=== PATIENT | male | born 1995 | race Caucasian/White ===

== ENCOUNTER → 2016-06-20 | Outpatient (CLI) | payer SELFPAY ==
--- NOTE | 2016-06-20 10:36 | RAD ---
EXAM DESCRIPTION: XR HAND 3 OR MORE VIEWS CLINICAL HISTORY: 20 y/o ,M, HAND PN COMPARISON: None. IMPRESSION: Nondisplaced fractures of the base of the 4th and 5th metacarpals. Associated soft tissue swelling. No additional fractures noted. No osseous lesion. No degenerative change. No radiopaque foreign body. Electronically signed by: Marito Mcdonald MD 06/20/2016 10:34
== END | disposition home or self-care (01) ==
LOC: RAD 08:29
PROVIDERS: ATTEND Orthopaedic Surgery
DX: M79.641 Pain in right hand (principal)

== ENCOUNTER → 2016-06-26 | Outpatient (CLI) | payer OTHER, SELFPAY ==
--- NOTE | 2016-06-26 10:51 | CT ---
EXAM DESCRIPTION: CT UPPER EXTREMITY WITHOUT IV CONTRAST CLINICAL HISTORY: 20 y/o M, FX COMPARISON: None TECHNIQUE: Volumetric non contrasted imaging of the wrist. Data was reformatted for interpretation. FINDINGS: There is a depression fracture of the distal aspect of the hamate due to impaction from the base of the 5th metacarpal. The hamate fracture is best visualized on the sagittal images. Bone island also noted within the hamate period There is an avulsion injury off of the ulnar aspect of the proximal aspect of the 4th metacarpal metaphysis. The remaining metacarpals are unremarkable. The remaining carpal bones are unremarkable. Radiocarpal joint is unremarkable. No ligamentous injury of the scapholunate or lunotriquetral ligament. IMPRESSION: Today's exam demonstrates a sagittally oriented avulsion injury off of the proximal metaphysis of 4th metacarpal. There is a coronally oriented fracture of the distal hamate as it articulates with the 5th metacarpal due to impaction from the base of 5th metacarpal. No additional fractures noted. Electronically signed by: Marito Mcdonald MD 06/26/2016 10:50
== END | disposition home or self-care (01) ==
LOC: CT 09:14
PROVIDERS: ATTEND Orthopaedic Surgery
DX: S62.306A Unspecified fracture of fifth metacarpal bone, right hand, initial encounter for closed fracture (principal)

== ENCOUNTER → 2016-07-29 | Outpatient (CLI) | payer OTHER ==
--- NOTE | 2016-07-29 09:19 | RAD ---
EXAM DESCRIPTION: Hand,Right 3 Views CLINICAL HISTORY: 20 years Male, CLOSED FX OF METACARPAL BONE IMPRESSION: Today's exam is compared to June 20, 2016. The base of the fourth metacarpal fracture is difficult to visualize, but is likely demonstrated some healing proximally. On the oblique radiograph there is a fracture fragment noted which appears stable today's exam and is likely an unhealed avulsion injury of the base of the fifth metacarpal. The soft tissue swelling has decreased. No additional findings on today's study. Electronically signed by: Marito Mcdonald MD 07/29/2016 9:18 AM CDT
== END ==
LOC: RAD 08:05
PROVIDERS: ATTEND Orthopaedic Surgery
DX: S62.300D Unspecified fracture of second metacarpal bone, right hand, subsequent encounter for fracture with routine healing (principal)

== ENCOUNTER 2017-11-23 19:57 | Inpatient (IN) | payer OTHER ==
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
--- NOTE | 2017-11-23 20:53 | RAD ---
EXAM: Facial Bones CLINICAL INDICATION: Left-sided facial pain COMPARISON: There is no previous study for comparison. FINDINGS: 3 views of the facial bones reveal no evidence of any fracture. The osseous structures appear intact and unremarkable. There are no radiopaque foreign bodies. IMPRESSION: Normal facial bone radiographs. Electronically signed by: Raphael Dixon MD 11/23/2017 8:52 PM CDT
--- NOTE | 2017-11-23 20:54 | RAD ---
EXAM: Chest,1 View CLINICAL INDICATION: Fever COMPARISON: 09/17/2013 FINDINGS: A single view of the chest was obtained. The heart size is normal. The pulmonary vascularity is unremarkable. The lungs are clear. There is no consolidation, infiltrate, pleural effusion, or pneumothorax. IMPRESSION: No evidence of active pulmonary disease. Electronically signed by: Raphael Dixon MD 11/23/2017 8:52 PM CDT
[2017-11-23] MEDS ORDERED: SODIUM CHLORIDE 0.9% 1000ML 1,000 ML IVS ONE ×2 (20:56→22:08)
[2017-11-23] MEDS ORDERED: KCL 20MEQ/WATER FOR INJ 100ML 20 MEQ in PREMIX BAG 1 BAG IVPB ONE (20:56)
[2017-11-23] MEDS ORDERED: KCL 20MEQ/WATER FOR INJ 100ML 100 ML IVPB ONE (21:01)
[2017-11-24] MEDS ORDERED: SODIUM CHLORIDE 0.9% 1000ML 1,000 ML ONE (01:09)
[2017-11-24] MEDS: SODIUM CHLORIDE 0.9% 1000ML 1,000 ML IVS PRN ×2 (01:17→11:34)
[2017-11-24] MEDS ORDERED: SODIUM CHLORIDE 0.9% 1000ML 1,000 ML IVS ONE (06:19)
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
[2017-11-24] MEDS ORDERED: SODIUM CHLORIDE 0.9% (FLUSH) 10 ML SYG IV PRN (08:05)
[2017-11-24] MEDS ORDERED: IV SET AND CAP CHANGE INJ INJ SCH (08:30)
[2017-11-24] MEDS: ENOXAPARIN SODIUM 40 MG/0.4 ML SYG SUBCU SCH (14:13)
[2017-11-24] MEDS ORDERED: POTASSIUM CHLORIDE 20 MEQ TAB PO ONE (18:58)
[2017-11-24] MEDS ORDERED: DEXTROSE 5% 1000ML 1,000 ML IVS ONE (19:49)
[2017-11-24] MEDS ORDERED: SODIUM BICARBONATE VIAL 50 MEQ/50 ML VIAL ONE (19:50)
[2017-11-24] MEDS: SODIUM BICARBONATE VIAL 75 MEQ in DEXTROSE 5% 1000ML 1,000 ML IVS PRN (20:05)
[2017-11-24] MEDS: NEOMYCIN-BACITRACIN-POLYMYXIN 0.9 GM UD TOP SCH (21:13)
[2017-11-25] MEDS ORDERED: SODIUM BICARBONATE VIAL 50 MEQ/50 ML VIAL ONE ×2 (00:36→04:32)
[2017-11-25] MEDS ORDERED: DEXTROSE 5% 1000ML 1,000 ML IVS ONE ×2 (00:36→04:32)
[2017-11-25] MEDS: SODIUM BICARBONATE VIAL 75 MEQ in DEXTROSE 5% 1000ML 1,000 ML IVS PRN ×2 (01:03→05:26)
[2017-11-25] MEDS: ENOXAPARIN SODIUM 40 MG/0.4 ML SYG SUBCU SCH (09:22)
[2017-11-25] MEDS: NEOMYCIN-BACITRACIN-POLYMYXIN 0.9 GM UD TOP SCH ×3 (09:23→20:18)
[2017-11-25] MEDS: SODIUM CHLORIDE 0.9% 1000ML 1,000 ML IVS PRN ×3 (10:44→22:29)
--- NOTE | 2017-11-25 18:16 | PN ---
DATE: 11/25/17 SUPERVISING PHYSICIAN: Driss Ibarra M.D. SUBJECTIVE: The patient is lying in bed. He had just been up to the bathroom. Has no complaints of nausea, vomiting, diarrhea, constipation, chest pain or difficulty urinating. OBJECTIVE: VITAL SIGNS: He is afebrile, heart rate 78, blood pressure 114/70, respiratory rate 18, O2 sat 99% on room air. RESPIRATORY: Essentially clear to auscultation bilaterally. CARDIAC: Regular rate and rhythm. GASTROINTESTINAL: Abdomen is soft, nondistended, non-tender. Bowel sounds are positive. EXTREMITIES: No cyanosis, clubbing or edema. NEUROLOGIC: He is awake, alert and oriented times three. LABORATORY: CBC is basically within normal limits. Electrolytes are basically within normal limits with BUN 6, creatinine 0.44. AST is 205, ALT is 77. Creatinine kinase 21,500. All other labs and films have been reviewed via the EMR. ASSESSMENT: 1. Rhabdomyolysis secondary to TASER. 2. Substance abuse. 3. Altered mental status, improved. PLAN: We will continue present supportive care. I have discontinued his IV fluids with bicarbonate and we are switching to normal saline at 200. I will repeat his lab in the morning. He also has a CK at 1500 as well as in the AM. Hopefully if his CK continues to decline we will be able to discharge him home tomorrow. Will continue to monitor him closely and follow as needed. Dr. Ibarra is the collaborating physician available for consultation. #[id number] [facility]
[2017-11-26] MEDS: SODIUM CHLORIDE 0.9% 1000ML 1,000 ML IVS PRN (03:26)
[2017-11-26] MEDS: NEOMYCIN-BACITRACIN-POLYMYXIN 0.9 GM UD TOP SCH (09:15)
[2017-11-26] MEDS: ENOXAPARIN SODIUM 40 MG/0.4 ML SYG SUBCU SCH (09:15)
[2017-11-26 09:44] VITALS: BP 120/70; TEMP 97.8; O2SAT 99
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
== END 2017-11-26 10:30 | disposition home or self-care (01) | DRG 558 ==
LOC: ER 19:57 → MS 11-24 07:47
PROVIDERS: ADMIT Nurse Practitioner; ATTEND Nurse Practitioner Acute Care
DX: M62.82 Rhabdomyolysis (principal); N17.9 Acute kidney failure, unspecified; S00.81XA Abrasion of other part of head, initial encounter; F15.10 Other stimulant abuse, uncomplicated; Y35.893A Legal intervention involving other specified means, suspect injured, initial encounter